=== PATIENT | female | born 1980 | race Caucasian/White ===

== ENCOUNTER → 2019-05-01 | Outpatient (CLI) | payer OTHER ==
[~2019-05-01] MED LIST: DOCU5LIQ PO; IBUP80TA PO; MAPA500T17 PO; MILK10SU PO; PRENTAB66 PO
--- NOTE | 2019-05-01 20:31 | REP ---
Clinical: Left ankle sprain. Technique: AP, lateral, bilateral oblique views of the left ankle. Findings: No acute fracture dislocation. Joint spaces and ankle mortise are intact. No subcutaneous emphysema or foreign body. Impression: No acute fracture or dislocation. Electronically Signed by Ritesh Sebastian MD 05/01/2019 08:23 P
== END ==
LOC: M LRY 20:04
PROVIDERS: ATTEND Physician Assistant
DX: S93.402A Sprain of unspecified ligament of left ankle, initial encounter (principal); X58.XXXA Exposure to other specified factors, initial encounter; Y92.89 Other specified places as the place of occurrence of the external cause

== ENCOUNTER → 2024-09-22 | Outpatient (CLI) | payer OTHER ==
[2024-09-22 14:15] LABS: HEMATOCRIT 36.7 % (36.0-47.0); HEMOGLOBIN 12.3 g/dl (12.0-15.5); MEAN CORPUSCULAR HEMOGLOBIN 29.3 pg (27.0-33.0); MEAN CORPUSCULAR HGB CONC 33.5 g/dl (32.0-36.5); MEAN CORPUSCULAR VOLUME 87.4 fl (80.0-96.0); PLATELET COUNT, AUTOMATED 291 10^3/uL (150-450); WHITE BLOOD COUNT 10.4 10^3/uL (4.0-10.0)
[2024-09-22 15:01] LABS: HIV 1&2 SCREEN NEGATIVE (NEGATIVE)
[2024-09-22 15:09] LABS: HEPATITIS C VIRUS ABY INDEX < 0.02 INDEX (<0.8)
[2024-09-22 15:27] LABS: GC DNA AMPLIFICATION NEGATIVE (NEGATIVE)
== END ==
LOC: M PLALAB 10:30
PROVIDERS: ATTEND Nurse Practitioner Family
DX: Z34.80 Encounter for supervision of other normal pregnancy, unspecified trimester (principal)

== ENCOUNTER → 2024-10-27 | Outpatient (CLI) | payer OTHER | LOC: M PLALAB 16:16 | PROVIDERS: ATTEND Obstetrics & Gynecology | DX: O09.522 Supervision of elderly multigravida, second trimester (principal); E03.9 Hypothyroidism, unspecified; Z3A.00 Weeks of gestation of pregnancy not specified ==

== ENCOUNTER → 2024-12-15 | Outpatient (CLI) | payer OTHER | LOC: M RAD 12:48 | PROVIDERS: ATTEND Nurse Practitioner Family | DX: Z34.82 Encounter for supervision of other normal pregnancy, second trimester (principal) ==

== ENCOUNTER → 2025-02-18 | Outpatient (CLI) | payer OTHER ==
[2025-02-18 13:19] LABS: GLUCOSE CHALLENGE TEST 1 HOUR 152 MG/DL (LESS THAN 140)
[2025-02-18 13:21] LABS: HEMATOCRIT 30.9 % (36.0-47.0); HEMOGLOBIN 10.3 g/dl (12.0-15.5); MEAN CORPUSCULAR HEMOGLOBIN 29.9 pg (27.0-33.0); MEAN CORPUSCULAR HGB CONC 33.3 g/dl (32.0-36.5); MEAN CORPUSCULAR VOLUME 89.8 fl (80.0-96.0); PLATELET COUNT, AUTOMATED 255 10^3/uL (150-450); RED BLOOD COUNT 3.44 10^6/uL (4.00-5.40); WHITE BLOOD COUNT 11.6 10^3/uL (4.0-10.0)
[2025-02-18 13:48] LABS: HIV 1&2 SCREEN NEGATIVE (NEGATIVE)
[2025-02-18 13:56] LABS: HEPATITIS C VIRUS ABY INDEX 0.03 INDEX (<0.8)
[2025-02-18 14:27] LABS: Trichomonas vaginalis (AMP) NOT DETECTED (NEGATIVE)
[2025-02-18 14:51] LABS: GC DNA AMPLIFICATION NEGATIVE (NEGATIVE)
== END ==
LOC: M PLALAB 09:51
PROVIDERS: ATTEND Specialist
DX: Z34.82 Encounter for supervision of other normal pregnancy, second trimester (principal)